=== PATIENT | female | born 1950 | race Caucasian/White ===

== ENCOUNTER 2018-10-28 18:18 | Emergency (ER) | payer MEDICARE ==
[~2018-10-28] VITALS: Ht 157.5 cm; Wt 50.8 kg
[2018-10-28 18:55] LABS: ABSOLUTE BASOPHILS 0.1 thou/uL (0.0-0.2); ABSOLUTE EOSINOPHILS 0.2 thou/uL (0.0-0.7); ABSOLUTE LYMPHOCYTES 1.6 thou/uL (0.8-5.3); ABSOLUTE MONOCYTES 0.7 thou/uL (0.0-1.2); ABSOLUTE NEUTROPHILS 10.8 thou/uL (1.6-8.1); EOSINOPHILS 1.5 %; HEMATOCRIT 40.1 % (37.0-47.0); HEMOGLOBIN 13.1 gm/dL (12.0-15.0); LYMPHOCYTES 11.8 %; MCH 28.8 pg (26.0-34.0); MCHC 32.8 g/dL (28.0-37.0); MCV 87.9 fL (80.0-100.0); MONOCYTES 5.4 %; MPV 8.2 fl. (7.2-11.1); NUCLEATED RBCS 0 /100WBC; PLATELET COUNT* 286 thou/uL (150-400); POLYS 80.3 %; RBC 4.56 mil/uL (4.20-5.00); RDW-CV 14.9 % (10.5-14.5); WBC 13.4 thou/uL (4.0-11.0)
[2018-10-28 19:06] LABS: ANION GAP 12 mmol/L (7-16); BUN 16 mg/dL (7-18); CALCIUM 9.2 mg/dL (8.5-10.1); CHLORIDE 101 mmol/L (98-107); CO2 26 mmol/L (21-32); GLUCOSE 175 mg/dL (70-99); SODIUM 139 mmol/L (136-145)
[2018-10-28 19:08] LABS: PROTIME 9.9 Seconds (9.20-11.50)
[2018-10-28 19:15] LABS: ALBUMIN 3.9 g/dL (3.4-5.0); ALKALINE PHOSPHATASE 91 U/L (46-116); POTASSIUM 2.9 mmol/L (3.5-5.1); SGOT 27 U/L (15-37); SGPT 26 U/L (30-65); TOTAL BILIRUBIN 0.3 mg/dL (<0.1-1.0); TOTAL PROTEIN 8.3 g/dL (6.4-8.2); TROPONIN-I LEVEL <0.06 ng/mL (<0.06)
[2018-10-28 20:06] LABS: URINE BILIRUBIN NEGATIVE (Negative); URINE BLOOD NEGATIVE (Negative); URINE CLARITY CLEAR; URINE COLOR YELLOW; URINE GLUCOSE-RANDOM NEGATIVE (Negative); URINE KETONES NEGATIVE (Negative); URINE LEUKOCYTES-REFLEX NEGATIVE (Negative); URINE NITRITE-REFLEX NEGATIVE (Negative); URINE PROTEIN TRACE (Negative); URINE SPECIFIC GRAVITY >= 1.030 (1.005-1.030); URINE UROBILINOGEN 0.2 E.U./dl (0.2-1.0)
[2018-10-28 20:15] VITALS: BP 124/64
--- NOTE | 2018-10-29 10:59 | EKG ---
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 : 1950 Requested By: Derik Kearney Order Number: [id number] MD: Glen Jarvis Measurements Intervals [place] Rate: 82 P: 63 PA: 51 QRS: 46 QRSD: 163 T: 67 QT: 409 QTc: 478 Interpretive Statements Sinus rhythm Artifact in lead(s) I,II,III,aVR,aVL,aVF and baseline wander in lead(s) V3 No previous ECG available for comparison Electronically Signed On 10-29-2018 10:59:19 CDT by Glen Jarvis [email or web address] <ELECTRONICALLY SIGNED> By: Glen Jarvis MD, [facility] 10/29/18 1059 1845 1845 Glen Jarvis MD, [facility] /EPI
== END 2018-10-28 20:15 | disposition short-term general hospital (02) ==
LOC: M.ERS 18:18
PROVIDERS: Family Medicine
DX: S72.032A Displaced midcervical fracture of left femur, initial encounter for closed fracture (principal); S00.83XA Contusion of other part of head, initial encounter; R55 Syncope and collapse; W18.39XA Other fall on same level, initial encounter; Y92.000 Kitchen of unspecified non-institutional (private) residence as the place of occurrence of the external cause; Y93.89 Activity, other specified; Y99.8 Other external cause status

== ENCOUNTER 2019-10-11 10:02 | Inpatient (IN) | payer OTHER ==
[~2019-10-11] VITALS: Ht 157.5 cm; Wt 54.3 kg
[2019-10-11 10:04] VITALS: BP 142/60
[2019-10-11 10:35] LABS: ABSOLUTE BASOPHILS 0.1 thou/uL (0.0-0.2); ABSOLUTE EOSINOPHILS 0.3 thou/uL (0.0-0.7); ABSOLUTE LYMPHOCYTES 1.3 thou/uL (0.8-5.3); ABSOLUTE MONOCYTES 0.3 thou/uL (0.0-1.2); ABSOLUTE NEUTROPHILS 6.3 thou/uL (1.6-8.1); BASOPHILS 0.8 %; EOSINOPHILS 3.7 %; HEMATOCRIT 39.9 % (37.0-47.0); HEMOGLOBIN 13.4 gm/dL (12.0-15.0); LYMPHOCYTES 15.3 %; MCH 29.6 pg (26.0-34.0); MCHC 33.5 g/dL (28.0-37.0); MCV 88.2 fL (80.0-100.0); MPV 8.5 fl. (7.2-11.1); NUCLEATED RBCS 0 /100WBC; PLATELET COUNT* 272 thou/uL (150-400); POLYS 76.2 %; RBC 4.53 mil/uL (4.20-5.00); RDW-CV 15.1 % (10.5-14.5); WBC 8.2 thou/uL (4.0-11.0)
[2019-10-11 10:44] LABS: CREATININE 1.2 mg/dL (0.6-1.3)
[2019-10-11 10:47] LABS: POTASSIUM 2.9 mmol/L (3.5-5.1)
[2019-10-11 10:55] LABS: ALBUMIN 3.8 g/dL (3.4-5.0); TOTAL BILIRUBIN 0.3 mg/dL (<0.1-1.0); TOTAL PROTEIN 8.7 g/dL (6.4-8.2)
[2019-10-11 11:19] LABS: URINE BILIRUBIN NEGATIVE (Negative); URINE BLOOD NEGATIVE (Negative); URINE CLARITY CLEAR; URINE COLOR STRAW; URINE GLUCOSE-RANDOM NEGATIVE (Negative); URINE KETONES TRACE (Negative); URINE LEUKOCYTES-REFLEX NEGATIVE (Negative); URINE NITRITE-REFLEX NEGATIVE (Negative); URINE PROTEIN 1+ (Negative); URINE UROBILINOGEN 0.2 E.U./dl (0.2-1.0)
[2019-10-11 12:27] VITALS: BP 116/53
[2019-10-11 13:10] VITALS: BP 133/62
[2019-10-11] MEDS ORDERED: KEPPRA XR750 MG PO (14:48)
[2019-10-11 16:00] VITALS: BP 124/60
[2019-10-11 20:00] VITALS: BP 104/56
[2019-10-11 21:29] LABS: AMP/METHAMP Negative (Negative); BARBITURATES Negative (Negative); BENZODIAZEPINES Negative (Negative); COCAINE Negative (Negative); METHADONE Negative (Negative); OPIATES Negative (Negative); PCP Negative (Negative); THC Negative (Negative)
[2019-10-11 23:27] VITALS: BP 100/49
[2019-10-12 03:35] VITALS: BP 92/50
--- NOTE | 2019-10-12 08:53 | EKG ---
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
[2019-10-12 09:52] LABS: CALCIUM 8.2 mg/dL (8.5-10.1); POTASSIUM 4.1 mmol/L (3.5-5.1)
[2019-10-12 12:04] VITALS: BP 102/50
[2019-10-12 16:00] VITALS: BP 92/53
--- NOTE | 2019-10-12 18:46 | CON ---
[address] [address] CONSULTATION Name: MELA FAY Room: [address] IN M.R.#: [id number] Admission: 10/11/19 Attend Phys: Chandler Barrios Discharge: Date of : 46 Report #: [id number] THIS REPORT FOR: //name// cc: Harmony Floyd Maggie M. DO ~ THIS REPORT FOR: //name// CC: RASHEED physician/PCP Chandler Capone DATE OF SERVICE: 10/11/2019 HISTORY OF PRESENT ILLNESS: This is a 69-year-old female patient who was evaluated by me for altered mental status and seizure. The patient indicated that she had a seizure at home. She said the seizure prior to that was 1 year ago. Her seizure started about 3-4 years ago. This started spontaneously without any trauma. She does not know what started it. She does not know what brings it on or what makes it better. She is presently on Keppra 500 mg p.o. b.i.d. She follows up with Dr. Parks, who is an epileptologist at [place]. Dr. Parks has considered replacing her Keppra with some other medications. The patient did not want to take that medication because it cost 700 dollars. She has some generalized weakness, some altered mental status. She believes all of it has resolved now. She is not having any particular pain except on the knee, which is having some bruise. REVIEW OF SYSTEMS: Indicated that she did have some nausea, vomiting when it happened. Presently, she was not nauseous. Presently, patient was that she had these episodes and she is becoming better. One of the notes indicates the heart dropped in this patient. I do not know what the cause for that is. She has a prior history of hip fracture and seizures, but does not look like the seizures are very frequent. That was a relevant 14-point review of system in this patient. PAST MEDICAL HISTORY: Positive for seizure. FAMILY HISTORY: Unremarkable. SOCIAL HISTORY: She does not drink any alcohol. PHYSICAL EXAMINATION: Indicates she is alert, responsive, able to follow simple and complex command. Her speech, concentration, fund of knowledge and memory is at her baseline. Cranial nerve examination 2-12 is unremarkable. Strength, sensation, reflexes and tone is unremarkable. There is no cerebellar sign. I could not look at the fundus. The patient is reasonably well-developed individual. Her hearing and vision looks adequate. Blood pressure is 124/60, respiration is 16, pulse is 80, temperature is 98.3. [place] [address] CONSULTATION Name: MELA FAY Room: [address] IN M.R.#: [id number] Admission: 10/11/19 Attend Phys: Chandler Barrios Discharge: Date of : 46 Report #: [id number] feel, but is palpable. She has no edema, cyanosis or jaundice. Cardiac examinations appear unremarkable. There is no respiratory difficulty or rhonchi. LABORATORY DATA: Her white count was 8.2. Her sodium was 2.6. Her potassium was 2.9, which is pretty low. She did have a CT scan of the head, which showed no changes. She had MRI of the brain with Dr. Parks. She thinks it was unremarkable, but she cannot tell me for sure. IMPRESSION: This patient presents with history of seizure. I do not have any records. She is on Keppra 500 mg p.o. b.i.d. Presently, I will increase it to 750 b.i.d. and then asked her to make an appointment with Dr. Parks next week and she can decide about her anticonvulsant. I will get an EEG done to see if any active epileptiform activity was noticed. I do not think we need to do anything else, but we do need to correct the patient's electrolyte imbalances. Thank you very much for this referral and if you have any question, please feel free to contact me. I might mention that she did get a gram of Keppra in the Emergency Room. <ELECTRONICALLY SIGNED> By: Paco Trinidad MD 10/12/19 1846 1712 1750Paco Trinidad MD /nt
[2019-10-13] VITALS: BP 139/40
[2019-10-13 04:00] VITALS: BP 86/43
[2019-10-13 08:00] VITALS: BP 110/64
[2019-10-13 09:51] LABS: ALBUMIN 3.3 g/dL (3.4-5.0); CALCIUM 8.8 mg/dL (8.5-10.1); CREATININE 0.9 mg/dL (0.6-1.3); MAGNESIUM 2.2 mg/dL (1.8-2.4); PHOSPHORUS* 3.9 mg/dL (2.5-4.9)
[2019-10-13 12:01] VITALS: BP 110/64
[2019-10-13] MEDS ORDERED: KEPPRA XR750 MG PO (12:25)
--- NOTE | 2019-10-21 18:04 | EEG ---
[address] [address] EEG STUDY REPORT Name: MELA FAY Room: [address] IN M.R.#: [id number] Admission: 10/11/19 Attend Phys: Chandler Barrios Discharge: 10/13/19 Date of : 46 Report #: [id number] THIS REPORT FOR: //name// CC: Chandler Stephenson DATE OF SERVICE: 10/12/2019 This patient is being evaluated for the possibility of seizure. EEG was done by placing the electrode by standard 10-20 system of electrode placement. Both referential and sequential montages were used for recording. Background activity does go up to about 9 Hz and 30 microvolts. Some frontal sharper activity appeared to be present. The patient became drowsy and that is associated with bilateral slowing and vertex sharp waves. Photic stimulation is unremarkable. IMPRESSION: This patient's EEG does appear to be showing some frontal sharper activity, which may represent epileptiform activity. Thank you very much for this referral. <ELECTRONICALLY SIGNED> By: Paco Trinidad MD 10/21/19 1804 1806 2023Pmarianela Trinidad MD /nt
== END 2019-10-13 14:00 | disposition home or self-care (01) | DRG 101 ==
LOC: M.ERS 10:02 → M.2W 11:11 → M.TBA-ER 11:11 → M.2W 12:40
PROVIDERS: Emergency Medicine Emergency Medical Services; ADMIT Family Medicine; ATTEND Family Medicine
DX: G40.909 Epilepsy, unspecified, not intractable, without status epilepticus (principal); E87.2 Acidosis; E87.1 Hypo-osmolality and hyponatremia; E86.0 Dehydration; E87.6 Hypokalemia; R11.10 Vomiting, unspecified; Z87.891 Personal history of nicotine dependence